=== PATIENT | female | born 1985 | race Caucasian/White ===

== ENCOUNTER 2016-12-10 10:30 | Emergency (ER) | payer BC ==
[~2016-12-10] VITALS: Ht 162.6 cm; Wt 131.8 kg
[~2016-12-10 10:30] MED LIST: ALLEGRA60 MG PO; CELLCEPT 5500 MG/TAB PO; CIPRO 500MG TA500 MG PO; CYMBALTA 60MG60 MG PO; DESYREL DIVIDO150 M1 PO; FLEXERIL10 MG PO; LORTAB 5/500 501 TAB PO; NAPROSYN PO; NORCO 325 MG-51 TAB PO; PLAQUENIL 200M200 MG PO; PREDNISONE10 MG PO; ULTRAM 50MG TAB50 MG PO; ZOFRAN 4MG T4 MG/TAB PO
[2016-12-10 10:35] VITALS: BP 134/74; TEMP 98.8
[2016-12-10 11:54] LABS: COLLECTION METHOD CLEAN CATCH
[2016-12-10 12:07] LABS: BASO % 0.2 % (0.0-2.0); EOS # 0.2 (0.0-0.7); EOS % 1.4 % (0-4.0); GRAN % 82.9 % (42.2-75.2); HEMATOCRIT 35.7 % (37.0-47.0); HEMOGLOBIN 12.2 g/dl (12.5-16.0); LYMPH # 1.3 (1.2-3.4); LYMPH % 9.5 % (20.0-51.0); MEAN CELL VOLUME 86 fl (80.0-100.0); MEAN CORPUSCULAR HEMOGLOBIN 29 pg (27.0-31.0); MEAN CORPUSCULAR HGB CONC 34 g/dl (33.0-37.0); MEAN PLATELET VOLUME 9.3 fl (7.4-10.4); MONO # 0.7 (0.1-0.6); MONO % 5.5 % (1.7-9.3); PLATELET COUNT 271 K/mm3 (130-400); RED BLOOD COUNT 4.15 M/mm3 (4.10-5.30)
[2016-12-10 12:07] LABS: MUCOUS Present /lpf; PH 5 (5-8); SQUAMOUS EPITHELIAL 0-2 /hpf; URINE APPEARANCE Clear; URINE BACTERIA None Seen /hpf; URINE BILIRUBIN Negative (NEGATIVE); URINE BLOOD 1+ (NEGATIVE); URINE COLOR Yellow; URINE GLUCOSE Negative (NEGATIVE); URINE KETONE 1+ (NEGATIVE); URINE LEUKOCYTE ESTERASE Negative (NEGATIVE); URINE NITRATE Negative (NEGATIVE); URINE PROTEIN(semi-quant) 2+ (NEGATIVE); URINE RBC 0-2 /hpf; URINE UROBILINOGEN Negative (NEGATIVE)
[2016-12-10 12:16] LABS: ALBUMIN 3.9 gm/dL (3.5-5.0); BILIRUBIN,TOTAL 0.9 mg/dL (0.0-1.0); CALCIUM 8.5 mg/dL (8.4-10.2); CREATININE, serum 0.72 mg/dL (0.52-1.25); TOTAL PROTEIN 7.4 gm/dL (6.4-8.2)
[2016-12-10] MEDS ORDERED: CIPRO 500MG TA500 MG PO (13:17)
[2016-12-10] MEDS ORDERED: FLAGYL500 MG PO (13:17)
[2016-12-10] MEDS ORDERED: NORCO 325 MG-7.1 TAB PO (13:17)
[2016-12-10] MEDS ORDERED: ZOFRAN ODT4 MG PO (13:19)
[2016-12-10 13:56] VITALS: PULSE 100
== END 2016-12-10 13:56 | disposition home or self-care (01) ==
LOC: COL.ER 10:30
PROVIDERS: Emergency Medicine; Physician Assistant
DX: K57.92 Diverticulitis of intestine, part unspecified, without perforation or abscess without bleeding (principal); M32.9 Systemic lupus erythematosus, unspecified
CPT/HCPCS: J7030; Q9967

== ENCOUNTER → 2020-02-10 | Outpatient (CLI) | payer BC ==
[~2020-02-10] MED LIST changes: +FLAGYL500 MG PO; +NORCO 325 MG-7.1 TAB PO; +ZOFRAN ODT4 MG PO
== END ==
LOC: DIA.ED 13:31
DX: O24.419 Gestational diabetes mellitus in pregnancy, unspecified control (principal)
CPT/HCPCS: G0108

== ENCOUNTER 2020-03-20 10:48 | Inpatient (IN) | payer BC ==
[~2020-03-20] VITALS: Ht 162.7 cm; Wt 151.4 kg
[2020-03-20] VITALS (35 sets, daily range): BP systolic 86–183; BP diastolic 50–124; PULSE 85–114; TEMP 98–98.5
[~2020-03-20 10:48] MED LIST changes: +PRENATAL
--- NOTE | 2020-03-20 11:05 | NUR ---
1105- 36.1, G2L0 arrives on unit from clinic for serial BPs and NST. Ambulatory to LDR4 with self. Oriented to room. Patient reports normal movement, denies any LOF, VB, or regular contractions. Instructed to change into clean gown. 1110- EFM explained and placed. VS obtained and assessment completed. Report given to Saman Khoury RN who assumes care of patient. 1155- This RN resumes care of patient. 1158- Dr. Shankar at bedside and reviews plan of care with patient who verbalizes understanding. 1209- Dr. Shankar at bedside and reviews options for delivery as recommended by MFM. See physician notes. Patient verbalizes understanding. Patient on phone with family. 1300- Patient calls RN to bedside and states she wishes to proceed with primary section. Roles at nurses desk and notified. Roles to bedside. 1310- IV to left hand. Labs obtained via IV site.
[2020-03-20] MEDS ORDERED: ASPIRIN 81M81 MG/TA2 PO (11:17)
[2020-03-20] MEDS ORDERED: PRILOSEC 20MG20 MG PO (11:18)
[2020-03-20] MEDS ORDERED: GLUCOPHAGE500 MG/TAB PO (11:19)
[2020-03-20 13:23] LABS: BASO % 0.3 % (0.0-2.0); EOS # 0.1 (0.0-0.7); EOS % 1.2 % (0-4.0); GRAN # 8.1 (1.4-6.5); GRAN % 79.2 % (42.2-75.2); HEMOGLOBIN 12.7 g/dl (12.5-16.0); LYMPH # 1.2 (1.2-3.4); MEAN CELL VOLUME 92 fl (80.0-100.0); MEAN CORPUSCULAR HEMOGLOBIN 31 pg (27.0-31.0); MEAN CORPUSCULAR HGB CONC 33 g/dl (33.0-37.0); MEAN PLATELET VOLUME 10.7 fl (7.4-10.4); MONO # 0.7 (0.1-0.6); MONO % 6.5 % (1.7-9.3); PLATELET COUNT 272 K/mm3 (130-400); RED BLOOD COUNT 4.13 M/mm3 (4.10-5.30); REDCELL DISTRIBUTION WIDTH-CV 16.2 % (11.5-14.5)
--- NOTE | 2020-03-20 13:24 | NUR ---
1324- Magnesium 4gm bolus explained and started as ordered. Patient verbalizes understanding. 1340- Magnesium 2gm maintenance dose initiated. 1359- Gualberto Varela CRNA at bedside. IV #[address] Shankar orders. 1411- EFM off and patient to OR via bed.
[2020-03-20 13:41] LABS: ALBUMIN 3.4 gm/dL (3.5-5.0); BILIRUBIN,TOTAL 0.6 mg/dL (0.0-1.0); CALCIUM 8.9 mg/dL (8.4-10.2); CREATININE, serum 0.56 (0.52-1.25); POTASSIUM 4.1 mmol/L (3.4-5.0); TOTAL PROTEIN 6.5 gm/dL (6.4-8.2)
--- NOTE | 2020-03-20 15:38 | NUR ---
1538- Patient to PACU via bed. Monitors applied. Plan of care reviewed. Beck to DD. IV infusing without difficulty. 1613- Patient to LDR4 via bed. Monitors applied. Plan of care and safety precautions reviewed.
[2020-03-21] VITALS (13 sets, daily range): BP systolic 129–156; BP diastolic 71–88; PULSE 76–95; TEMP 97.4–98.2
--- NOTE | 2020-03-21 02:14 | NUR ---
0214- LAB HERE FOR 2100 MAGNESIUM LEVEL BLOOD DRAW
[2020-03-21 03:05] LABS: HEMOGLOBIN 12.1 g/dl (12.5-16.0)
[2020-03-21 03:09] LABS: HEMATOCRIT 35.5 % (37.0-47.0)
--- NOTE | 2020-03-21 03:14 | NUR ---
0314- LAB CALLS WITH CRITICAL LAB RESULT OF 7.5. 5- DR CALDERA CALLED AND UPDATED ON MAG LEVEL, VITAL SIGNS, AND URINE OUTPUT. ORDER TO DECREASE MAG TO 1GM/HR AT THIS TIME.
[2020-03-21 08:36] LABS: ALBUMIN 2.9 gm/dL (3.5-5.0); BILIRUBIN,TOTAL 0.5 mg/dL (0.0-1.0); CALCIUM 7.5 mg/dL (8.4-10.2); CREATININE, serum 0.58 (0.52-1.25); POTASSIUM 4.4 mmol/L (3.4-5.0); TOTAL PROTEIN 5.7 gm/dL (6.4-8.2)
[2020-03-22 00:15] VITALS: BP 146/85; PULSE 87; TEMP 98.2
[2020-03-22 06:35] VITALS: BP 146/90; PULSE 92; TEMP 97.9
[2020-03-22 07:11] LABS: HEMOGLOBIN 10.6 g/dl (12.5-16.0); MEAN CELL VOLUME 95 fl (80.0-100.0); MEAN CORPUSCULAR HEMOGLOBIN 32 pg (27.0-31.0); MEAN CORPUSCULAR HGB CONC 34 g/dl (33.0-37.0); MEAN PLATELET VOLUME 10.5 fl (7.4-10.4); PLATELET COUNT 212 K/mm3 (130-400); RED BLOOD COUNT 3.33 M/mm3 (4.10-5.30); REDCELL DISTRIBUTION WIDTH-CV 17.1 % (11.5-14.5)
[2020-03-22 07:13] LABS: HEMATOCRIT 31.6 % (37.0-47.0)
[2020-03-22 07:18] LABS: ALBUMIN 2.6 gm/dL (3.5-5.0); BILIRUBIN,TOTAL 0.3 mg/dL (0.0-1.0); CALCIUM 7.9 mg/dL (8.4-10.2); CREATININE, serum 0.61 (0.52-1.25); TOTAL PROTEIN 5.3 gm/dL (6.4-8.2)
[2020-03-22 12:00] VITALS: BP 131/75; PULSE 84
[2020-03-22 16:45] VITALS: BP 149/92; PULSE 85; TEMP 98
[2020-03-22 19:10] VITALS: BP 144/83; PULSE 86; TEMP 98.9
[2020-03-22 22:20] VITALS: BP 140/86; PULSE 87
[2020-03-23 02:45] VITALS: BP 136/75; PULSE 82
[2020-03-23] MEDS ORDERED: IBU600 MG PO (07:00)
[2020-03-23] MEDS ORDERED: NORMODYNE200 MG PO (07:00)
[2020-03-23] MEDS ORDERED: PERCOCET 325 MG1 TA2 PO (07:01)
[2020-03-23 07:40] VITALS: BP 157/97; PULSE 90; TEMP 98.2
--- NOTE | 2020-03-23 08:54 | NUR ---
Initial visit; Parents thanked Public Records Researcher for offering congratulations and God's blessings for the of their daughter. Public Records Researcher thanked family for choosing [facility].
[2020-03-23 10:15] VITALS: BP 164/95; PULSE 78
[2020-03-23 13:50] VITALS: BP 168/95; PULSE 800
== END 2020-03-23 14:40 | disposition home or self-care (01) | DRG 788 ==
LOC: LDRO 10:48 → LDR 11:00 → OB 03-21 11:30
PROVIDERS: Student in an Organized Health Care Education/Training Program; ADMIT Obstetrics & Gynecology
PROC: 10D00Z1 Extraction of Products of Conception, Low, Open Approach (ICD-10-PCS; principal; 2020-03-20)
DX: O14.14 Severe pre-eclampsia complicating childbirth (principal); Z3A.36 36 weeks gestation of pregnancy; Z37.0 Single live birth; O99.214 Obesity complicating childbirth; O24.429 Gestational diabetes mellitus in childbirth, unspecified control; E66.01 Morbid (severe) obesity due to excess calories; Z20.828 Contact with and (suspected) exposure to other viral communicable diseases; M32.10 Systemic lupus erythematosus, organ or system involvement unspecified
CPT/HCPCS: J0690; J1100; J1885; J2370; J2405; J2590; J3475; J7030